=== PATIENT | male | born 1955 | race Caucasian/White ===

== ENCOUNTER 2019-10-12 00:18 | Emergency (ER) | payer SELFPAY ==
[~2019-10-12] VITALS: Ht 177.8 cm; Wt 106.8 kg
[2019-10-12 00:47] VITALS: BP 181/93
== END 2019-10-12 00:51 ==
LOC: ER 00:18
DX: F10.129 Alcohol abuse with intoxication, unspecified (principal); I10 Essential (primary) hypertension; E11.9 Type 2 diabetes mellitus without complications; V87.7XXA Person injured in collision between other specified motor vehicles (traffic), initial encounter; Y93.89 Activity, other specified; Y92.410 Unspecified street and highway as the place of occurrence of the external cause; Y99.8 Other external cause status; Y90.9 Presence of alcohol in blood, level not specified
CPT/HCPCS: 82948; 99283